=== PATIENT | female | born 1945 | race Caucasian/White ===

== ENCOUNTER 2017-01-21 16:21 | Inpatient (IN) | payer OTHER ==
--- NOTE | 2017-01-21 16:29 | PDOC ---
History of Present Illness - General Chief Complaint: Injury Stated Complaint: LEG PAIN Time Seen by Provider: 01/21/17 16:28 History Source: Patient Exam Limitations: No Limitations - History of Present Illness Initial Comments: 01/21/17 17:32 Patient is a 72-year-old female past medical history of hypertension, type 2 diabetes, HLD, gastric cancer in remission, presents to the emergency department today complaining of left leg pain. Patient states that she slipped on a rug at home and fell on her left side. She is unable to ambulate since falling. She states that the pain is a 10 out of 10. Admits to weakness in the left leg. Denies numbness, tingling, recent illness, cough, shortness of breath , chest pain, frequency, urgency, hematuria, nausea, vomiting and diarrhea. Past History - Travel Traveled outside of the country in the last 30 days: No Close contact w/someone who was outside of country & ill: No - Past Medical History Allergies/Adverse Reactions: Allergies Allergy/AdvReac Type Severity Reaction Status Date / Time aspirin Allergy Verified 01/21/17 16:30 Penicillins Allergy Verified 01/21/17 16:30 Home Medications: Ambulatory Orders Cholecalciferol (Vitamin D3) [Vitamin D3] 1,000 unit PO BID 10/13/14 Cyanocobalamin [Vitamin B12 -] 500 mcg PO DAILY 10/13/14 Glyburide/Metformin HCl [Glucovance 5-500 mg Tablet] 1 each PO BID 10/13/14 Losartan Potassium 100 mg PO DAILY 10/13/14 Simvastatin [Zocor -] 20 mg PO HS 10/13/14 Sitagliptin Phosphate [Januvia] 100 mg PO DAILY 10/13/14 Aspirin [ASA -] 325 mg PO DAILY tablet 10/17/14 Meloxicam 0 mg PO DAILY 01/21/17 Metoprolol Tartrate [Lopressor -] 25 mg PO DAILY 01/21/17 Cancer: Yes (gastric) Diabetes: Yes HTN: Yes - Suicide/Smoking/Psychosocial Hx Smoking History: Former smoker Have you smoked in the past 12 months: No If you are a former smoker, when did you quit?: 30YRS AGO Hx Alcohol Use: No Drug/Substance Use Hx: No Substance Use Type: None Review of Systems - Review of Systems Able to Perform ROS?: Yes Comments:: 01/21/17 17:32 CONSTITUTIONAL: Absent: fever, chills, diaphoresis, generalized weakness, malaise, loss of appetite HEENT: Absent: rhinorrhea, nasal congestion, throat pain, throat swelling, difficulty swallowing, mouth swelling, ear pain, eye pain, visual Changes CARDIOVASCULAR: Absent: chest pain, loss of consciousness, palpitations, irregular heart rate, peripheral edema RESPIRATORY: Absent: cough, shortness of breath, dyspnea with exertion, orthopnea, wheezing, stridor, hemoptysis GASTROINTESTINAL: Absent: abdominal pain, abdominal distension, nausea, vomiting, diarrhea, constipation, melena, hematochezia GENITOURINARY: Absent: dysuria, frequency, urgency, hesitancy, hematuria, flank pain, genital pain MUSCULOSKELETAL: Present: L leg pain, weakness. Absent: myalgia, arthralgia, joint swelling SKIN: Absent: rash, itching, pallor, bruising HEMATOLOGIC/IMMUNOLOGIC: Absent: easy bleeding, easy bruising, lymphadenopathy, frequent infections ENDOCRINE: Absent: unexplained weight gain, unexplained weight loss, heat intolerance, cold intolerance NEUROLOGIC: Absent: headache, focal weakness or paresthesias, dizziness, unsteady gait, seizure, mental status changes, bladder or bowel incontinence PSYCHIATRIC: Absent: anxiety, depression, suicidal or homicidal ideation, hallucinations. Is the patient limited Mauritanian proficient: No *Physical Exam - Physical Exam Comments: 01/21/17 17:33 GENERAL: Well developed, well nourished. Awake and alert. Mild distress d/t pain. HEENT: Normocephalic, atraumatic. PERRLA, EOMI. No conjunctival pallor. Sclera are non- icteric. Moist mucous membranes. Oropharynx is clear. NECK: Supple. Full ROM. No JVD. Carotid pulses 2+ and symmetric, without bruits. No thyromegaly. No lymphadenopathy. CARDIOVASCULAR: Regular rate and rhythm. No murmurs, rubs, or gallops. Distal pulses are 2+ and symmetric. PULMONARY: No evidence of respiratory distress. Lungs clear to auscultation bilaterally. No wheezing, rales or rhonchi. ABDOMINAL: Soft. Non-tender. Non-distended. No rebound or guarding. No organomegaly. Normoactive bowel sounds. MUSCULOSKELETAL Leg is splinted at this time. Unable to range the leg without pain. Pelvis is intact without crepitus. Left leg as however externally rotated and shortened area. Deep PE pulses are intact 2+ bilaterally, gross sensation intact, able to wiggle toes. Cap refill less than 2 seconds. Normal range of motion at all joints. No bony deformities or tenderness. No CVA tenderness. EXTREMITIES: No cyanosis. No clubbing. No edema. No calf tenderness. SKIN: Warm and dry. Normal capillary refill. No rashes. No jaundice. NEUROLOGICAL: Alert, awake, appropriate. Cranial nerves 2-12 intact. No deficits to light touch and temperature in face, upper extremities and lower extremities. No motor deficits in the in face, upper extremities and lower extremities. Normoreflexic in the upper and lower extremities. Normal speech. Toes are down- going bilaterally. Gait is normal without ataxia. PSYCHIATRIC: Cooperative. Good eye contact. Appropriate mood and affect. ED Treatment Course - LABORATORY CBC & Chemistry Diagram: 01/21/17 17:05 01/21/17 17:05 Medical Decision Making - Medical Decision Making 01/21/17 17:34 Patient is a 72-year-old female past medical history of hypertension, type 2 diabetes, HLD, gastric cancer in remission, who presents to the emergency department today with suspected left hip fracture. The left leg is visibly shortened and externally rotated. We'll workup for hip fracture 1.CBC, CMP, PT/INR, type and screen, 2.left hip x-ray 3.2 mg IV morphine 4. Reevaluate 01/21/17 18:34 Pt. feeling better after morphine Left hip is grossly fractured. Patient has a displaced intertrochanteric fx. call was placed to who accepts the patient for admission under . Call made to Dr. Payne to inform him of the patient's status. Will admit to [facility] at this time. *DC/Admit/Observation/Transfer Diagnosis at time of Disposition: Intertrochanteric fracture of left femur Qualifiers: Encounter type: initial encounter Fracture type: closed Fracture alignment: displaced Qualified Code(s): S72.142A - Displaced intertrochanteric fracture of left femur, initial encounter for closed fracture; S72.142A - Displaced intertrochanteric fracture of left femur, initial encounter for closed fracture ; S72.142A - Displaced intertrochanteric fracture of left femur, initial encounter for closed fracture - Discharge Dispostion Condition at time of disposition: Stable Admit: Yes
[2017-01-21 16:30] VITALS: BMI 21.9
[2017-01-21] MEDS ORDERED: morphine CARPU-JECT 2 MG/1 ML DISP.SYRIN IVPUSH ONE (16:43)
[2017-01-21] MEDS ORDERED: morphine CARPU-JECT 2 MG/1 ML DISP.SYRIN ONE (16:53)
[2017-01-21 17:13] LABS: BASOPHIL 0.6 % (0-2.0); EOSINOPHIL 0.6 % (0-4.5); MCH 27.6 pg (25.7-33.7); MCHC 32.8 g/dl (32.0-36.0); MEAN CELL VOLUME 84.3 fl (80-96); MEAN PLT VOLUME 11.5 fl (7.5-11.1); NEUTROPHILS 79.4 % (42.8-82.8); PLATELET COUNT 207 K/MM3 (134-434)
[2017-01-21 17:26] LABS: INR 1.01 (0.82-1.09); PROTHROMBIN TIME (PATIENT) 11.1 SEC (9.98-11.88)
[2017-01-21 18:22] LABS: ALK PHOS 112 U/L (45-117); ANION GAP 12 (8-16); BILIRUBIN,TOTAL 0.3 mg/dL (0.2-1.0); CALCIUM 9.4 mg/dL (8.5-10.1); CO2 25 mmol/L (21-32); CREATININE 0.8 mg/dL (0.55-1.02); GLUCOSE,RANDOM 175 mg/dL (74-106); SGOT/AST 18 U/L (15-37); SGPT/ALT 21 U/L (12-78); TOT PROT 7.2 g/dl (6.4-8.2)
[2017-01-21] MEDS ORDERED: D5-1/2NS+20 MEQ KCL - 1,000 ML IV SCH (21:00)
[2017-01-21] MEDS: HEPARIN NA (PORCINE) 5,000 UNITS/ML 1ML VIAL SQ SCH (21:30)
[2017-01-21] MEDS: morphine CARPU-JECT 4 MG/1 ML DISP.SYRIN IVPUSH PRN (21:30)
[2017-01-21] MEDS ORDERED: ATORVASTATIN CA 10 MG TABLET (FP) PO SCH (22:00)
[2017-01-21 23:55] LABS: URINE APPEARANCE SLCLOUDY; URINE BILIRUBIN NEGATIVE (NEGATIVE); URINE BLOOD NEGATIVE (NEGATIVE); URINE COLOR STRAW; URINE GLUCOSE (UA) 3+ (NEGATIVE); URINE KETONE 1+ (NEGATIVE); URINE NITRITE NEGATIVE (NEGATIVE); URINE PROTEIN NEGATIVE (NEGATIVE); URINE UROBILINOGEN NEGATIVE mg/dL (0.2-1.0)
[2017-01-22 00:10] LABS: URINE LEUK ESTERASE 3+ (NEGATIVE)
[2017-01-22 00:13] LABS: URINE MUCUS RARE; URINE RBC 3 /hpf (0-3); URINE WBC 44 /hpf (3-5)
[2017-01-22] MEDS: morphine CARPU-JECT 4 MG/1 ML DISP.SYRIN IVPUSH PRN (05:58)
[2017-01-22 08:14] LABS: BASOPHIL 0.5 % (0-2.0); EOSINOPHIL 0.5 % (0-4.5); MCH 27.4 pg (25.7-33.7); MCHC 32.8 g/dl (32.0-36.0); MEAN CELL VOLUME 83.4 fl (80-96); NEUTROPHILS 78.9 % (42.8-82.8); PLATELET COUNT 186 K/MM3 (134-434); RDW 15.4 % (11.6-15.6); WHITE BLOOD COUNT 6.1 K/mm3 (4.0-10.0)
[2017-01-22 08:45] LABS: ALBUMIN 3.3 g/dl (3.4-5.0); ANION GAP 8 (8-16); CALCIUM 8.7 mg/dL (8.5-10.1); CO2 26 mmol/L (21-32); CREATININE 0.6 mg/dL (0.55-1.02); GLUCOSE,RANDOM 169 mg/dL (74-106); SGOT/AST 14 U/L (15-37); SGPT/ALT 19 U/L (12-78)
[2017-01-22 08:50] LABS: ALK PHOS 99 U/L (45-117); BILIRUBIN,TOTAL 0.5 mg/dL (0.2-1.0); TOT PROT 6.6 g/dl (6.4-8.2); TROPONIN I < 0.02 ng/ml (0.00-0.05)
--- NOTE | 2017-01-22 09:58 | PN ---
Progress Note (short form) - Note Progress Note: Pt seen and examined. All questions answered. Risks and benefits and potential complications discussed. Plan To OR later today for a Left Gamma nail Need medical clearance NPO
[2017-01-22] MEDS ORDERED: LOSARTAN POTASSIUM 50 MG TABLET (FP) PO SCH (10:00)
[2017-01-22] MEDS ORDERED: PANTOPRAZOLE 40 MG TABLET (FP) PO SCH (10:00)
[2017-01-22] MEDS ORDERED: METOPROLOL TARTRATE 25 MG TABLET (FP) PO SCH (10:00)
[2017-01-22] MEDS: HEPARIN NA (PORCINE) 5,000 UNITS/ML 1ML VIAL SQ SCH (10:28)
--- NOTE | 2017-01-22 10:31 | CON.CARD ---
Cardiology Consult (text) - Consultation Consultation Note: cc: s/p fall hpi: 72 f hx htn, hld, dm here s/p fall. Was at [employer] walking and tripped on rug and fell. No loc, no prodrome sxs. No recent falls. No cp, sob, palps, dizzy, loc, pnd, orthopnea, le edema. No hx hrt dz, cva/tia. Found to have hip fx with plans for OR today. pmh: per hpi psh: nc social: ex tob fam: no premature cad, scd ros: per hpi; no nvd, fever, cough, nasal congestion, wt loss, gib, hematuria, dysuria, muscle pain, vision changes meds: Home Medications Medication Instructions Recorded Cholecalciferol (Vitamin D3) 1,000 unit PO BID 10/13/14 [Vitamin D3] Cyanocobalamin [Vitamin B12 -] 500 mcg PO DAILY 10/13/14 Glyburide/Metformin HCl 1 each PO BID 10/13/14 [Glucovance 5-500 mg Tablet] Losartan Potassium 100 mg PO DAILY 10/13/14 Simvastatin [Zocor -] 20 mg PO HS 10/13/14 Sitagliptin Phosphate [Januvia] 100 mg PO DAILY 10/13/14 Aspirin [ASA -] 325 mg PO DAILY tablet 10/17/14 Meloxicam 0 mg PO DAILY 01/21/17 Metoprolol Tartrate [Lopressor -] 25 mg PO DAILY 01/21/17 pe: Vital Signs Period Temp Pulse Resp BP Sys/Askew Pulse Ox Last 24 Hr 97.5 F-98.5 F 73-81 18-20 120-158/72-91 95-100 nad no jvd rrr s1s2 no mrg cta bl nl eff aaox3 no le e/c/c abd nd nt pos bs no jaundice diaphoresis pos dp pt no carotid bruits Laboratory Last Values WBC 6.1 K/mm3 (4.0-10.0) 01/22/17 06:45 RBC 4.00 M/mm3 (3.60-5.2) 01/22/17 06:45 Hgb 11.0 GM/dL (10.7-15.3) 01/22/17 06:45 Hct 33.4 % (32.4-45.2) 01/22/17 06:45 MCV 83.4 fl (80-96) 01/22/17 06:45 MCH 27.4 pg (25.7-33.7) 01/22/17 06:45 MCHC 32.8 g/dl (32.0-36.0) 01/22/17 06:45 RDW 15.4 % (11.6-15.6) 01/22/17 06:45 Plt Count 186 K/MM3 (134-434) 01/22/17 06:45 MPV 11.0 fl (7.5-11.1) 01/22/17 06:45 Neutrophils % 78.9 % (42.8-82.8) 01/22/17 06:45 Lymphocytes % 11.1 % (8-40) 01/22/17 06:45 Monocytes % 9.0 % (3.8-10.2) 01/22/17 06:45 Eosinophils % 0.5 % (0-4.5) 01/22/17 06:45 Basophils % 0.5 % (0-2.0) 01/22/17 06:45 PT with INR 11.10 SEC (9.98-11.88) 01/21/17 17:05 INR 1.01 (0.82-1.09) 01/21/17 17:05 Sodium 138 mmol/L (136-145) 01/22/17 06:45 Potassium 4.3 mmol/L (3.5-5.1) 01/22/17 06:45 Chloride 104 mmol/L (98-107) 01/22/17 06:45 Carbon Dioxide 26 mmol/L (21-32) 01/22/17 06:45 Anion Gap 8 (8-16) 01/22/17 06:45 BUN 17 mg/dL (7-18) D 01/22/17 06:45 Creatinine 0.6 mg/dL (0.55-1.02) D 01/22/17 06:45 Creat Clearance w eGFR > 60 (>60) 01/22/17 06:45 POC Glucometer 185 UNITS (()) 01/21/17 21:39 Random Glucose 169 mg/dL (74-106) H 01/22/17 06:45 Calcium 8.7 mg/dL (8.5-10.1) 01/22/17 06:45 Total Bilirubin 0.5 mg/dL (0.2-1.0) D 01/22/17 06:45 AST 14 U/L (15-37) L D 01/22/17 06:45 ALT 19 U/L (12-78) 01/22/17 06:45 Alkaline Phosphatase 99 U/L (45-117) 01/22/17 06:45 Troponin I < 0.02 ng/ml (0.00-0.05) 01/22/17 06:45 Total Protein 6.6 g/dl (6.4-8.2) 01/22/17 06:45 Albumin 3.3 g/dl (3.4-5.0) L 01/22/17 06:45 Urine Color Straw 01/21/17 23:00 Urine Appearance Slcloudy 01/21/17 23:00 Urine pH 5.0 (5.0-8.0) 01/21/17 23:00 Ur Specific [place] 1.010 (1.005-1.025) 01/21/17 23:00 Urine Protein Negative (NEGATIVE) 01/21/17 23:00 Urine Glucose (UA) 3+ (NEGATIVE) H 01/21/17 23:00 Urine Ketones 1+ (NEGATIVE) H 01/21/17 23:00 Urine Blood Negative (NEGATIVE) 01/21/17 23:00 Urine Nitrite Negative (NEGATIVE) 01/21/17 23:00 Urine Bilirubin Negative (NEGATIVE) 01/21/17 23:00 Urine Urobilinogen Negative mg/dL (0.2-1.0) 01/21/17 23:00 Urine RBC 3 /hpf (0-3) 01/21/17 23:00 Urine WBC 44 /hpf (3-5) 01/21/17 23:00 Ur Epithelial Cells Rare /hpf (FEW) 01/21/17 23:00 Urine Mucus Rare 01/21/17 23:00 Blood Type O POSITIVE 01/21/17 17:05 Antibody Screen Negative 01/21/17 17:05 mibi 08/2014: no ischemia, nl lvef ecg 01/22/17: sr, nl intervals, no ischemic changes, lad cxr: clear lungs a/p: 72 f hx htn, hld, dm here s/p fall. fall: -mechanical fall, no signs cardiac etiology htn: -cont home meds hld: -cont statin preop: -pt has no unstable cardiac issues at present -recent nuclear stress test unremarkable -ecg benign here -no cardiac contraindications to hip surgery, pt may proceed at intermediate risk of periop cardiac events.
--- NOTE | 2017-01-22 11:24 | HP ---
Admitting History and Physical - Primary Care Physician PCP: Jarred Garland - Admission Chief Complaint: S/P FALL LEFT HIP FRACTURE History of Present Illness: Patient is a 72-year-old female past medical history of hypertension, type 2 diabetes, HLD, gastric cancer in remission, presents to the emergency department today complaining of left leg pain. Patient states that she slipped on a rug at home and fell on her left side. She is unable to ambulate since falling. She states that the pain is a 10 out of 10. Admits to weakness in the left leg. Denies numbness, tingling, recent illness, cough, shortness of breath , chest pain, frequency, urgency, hematuria, nausea, vomiting and diarrhea. History Source: Medical Record Limitations to Obtaining History: Poor Historian - Past Medical History Cardiovascular: Yes: HTN ...: No Heme/Onc: Yes: Cancer Endocrine: Yes: Diabetes Insipidus - Smoking History Smoking history: Former smoker Have you smoked in the past 12 months: No If you are a former smoker, when did you quit?: 30YRS AGO - Alcohol/Substance Use Hx Alcohol Use: No Home Medications - Allergies Allergies/Adverse Reactions: Allergies Allergy/AdvReac Type Severity Reaction Status Date / Time aspirin Allergy Verified 01/21/17 16:30 Penicillins Allergy Verified 01/21/17 16:30 - Home Medications Home Medications: Ambulatory Orders Cholecalciferol (Vitamin D3) [Vitamin D3] 1,000 unit PO BID 10/13/14 Cyanocobalamin [Vitamin B12 -] 500 mcg PO DAILY 10/13/14 Glyburide/Metformin HCl [Glucovance 5-500 mg Tablet] 1 each PO BID 10/13/14 Losartan Potassium 100 mg PO DAILY 10/13/14 Simvastatin [Zocor -] 20 mg PO HS 10/13/14 Sitagliptin Phosphate [Januvia] 100 mg PO DAILY 10/13/14 Aspirin [ASA -] 325 mg PO DAILY tablet 10/17/14 Meloxicam 0 mg PO DAILY 01/21/17 Metoprolol Tartrate [Lopressor -] 25 mg PO DAILY 01/21/17 Review of Systems - Review of Systems Constitutional: reports: Other Eyes: reports: No Symptoms HENT: reports: No Symptoms Neck: reports: No Symptoms Cardiovascular: reports: No Symptoms Respiratory: reports: No Symptoms Gastrointestinal: reports: No Symptoms Genitourinary: reports: No Symptoms Musculoskeletal: reports: Joint Pain, Joint Swelling Integumentary: reports: No Symptoms Neurological: reports: Pre-Existing Deficit Endocrine: reports: No Symptoms Hematology/Lymphatic: reports: No Symptoms Psychiatric: reports: Anxiety, Other Physical Examination Vital Signs: Vital Signs Temperature 98.5 F 01/22/17 06:00 Pulse Rate 81 01/22/17 06:00 Respiratory Rate 20 01/22/17 06:00 Blood Pressure 158/91 01/22/17 06:00 O2 Sat by Pulse Oximetry (%) 97 01/22/17 04:43 Constitutional: Yes: Mild Distress Eyes: Yes: WNL HENT: Yes: WNL Neck: Yes: WNL Cardiovascular: Yes: WNL Respiratory: Yes: WNL Gastrointestinal: Yes: WNL Renal/: Yes: WNL Musculoskeletal: Yes: Joint Stiffness, Joint Swelling, Muscle Pain, Muscle Weakness Extremities: Yes: Other Edema: No Peripheral Pulses WNL: Yes Integumentary: Yes: WNL Wound/Incision: Yes: Clean/Dry Neurological: Yes: Pre-Existing Deficit ...Motor Strength: LLE Psychiatric: Yes: Other Labs: CBC, BMP 01/22/17 06:45 01/22/17 06:45 Imaging - Results X-ray: Report Reviewed Problem List - Problems (1) Intertrochanteric fracture of left femur Code(s): S72.142A - DISPLACED INTERTROCHANTERIC FRACTURE OF LEFT FEMUR, INIT Qualifiers: Encounter type: initial encounter Fracture type: closed Fracture alignment: displaced Qualified Code(s): S72.142A - Displaced intertrochanteric fracture of left femur, initial encounter for closed fracture ; S72.142A - Displaced intertrochanteric fracture of left femur, initial encounter for closed fracture; S72.142A - Displaced intertrochanteric fracture of left femur, initial encounter for closed fracture (2) DMII (diabetes mellitus, type 2) Code(s): E11.9 - TYPE 2 DIABETES MELLITUS WITHOUT COMPLICATIONS Qualifiers: Diabetes mellitus complication status: with circulatory complication Diabetes mellitus penitentiary insulin use: without penitentiary use (3) HTN (hypertension) Code(s): I10 - ESSENTIAL (PRIMARY) HYPERTENSION Qualifiers: Hypertension type: essential hypertension Qualified Code(s): I10 - Essential (primary) hypertension; I10 - Essential (primary) hypertension; I10 - Essential (primary) hypertension Assessment/Plan MEDICALLY CLEARED BY CARDIOLOGY FOR LEFT HIP REPAIR DVT PROPHYLAXIS 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
--- NOTE | 2017-01-22 11:53 | EKG ---
Test Reason : Blood Pressure : / mmHG Vent. Rate : 076 BPM Atrial Rate : 076 BPM P-R Int : 146 ms QRS Dur : 076 ms QT Int : 374 ms P-R-T Axes : 053 -41 021 degrees QTc Int : 420 ms NORMAL SINUS RHYTHM LEFT AXIS DEVIATION ABNORMAL ECG WHEN COMPARED WITH ECG OF 21-JAN-2017 16:34, PREMATURE ATRIAL COMPLEXES ARE NO LONGER PRESENT T WAVE INVERSION NO LONGER EVIDENT IN ANTERIOR LEADS Confirmed by MANNY VILLALTA, PONCE ([id number]) on 01/22/2017 11:52:49 AM Referred By: Cathleen BOUCHER Confirmed By:PONCE BRYANT MD
[2017-01-22] MEDS ORDERED: ONDANSETRON 4 MG/2 ML VIAL IVPUSH PRN ×2 (12:49→16:18)
[2017-01-22] MEDS ORDERED: PROPOFOL 20 ML ONE (12:54)
[2017-01-22] MEDS ORDERED: LIDOCAINE HCL/PF 2% SDV 5ML VIAL ONE (12:54)
[2017-01-22] MEDS ORDERED: LACTATED RINGERS SOLUTION 1,000 ML IV SCH (13:00)
--- NOTE | 2017-01-22 13:04 | EKG ---
Test Reason : Blood Pressure : / mmHG Vent. Rate : 077 BPM Atrial Rate : 077 BPM P-R Int : 146 ms QRS Dur : 070 ms QT Int : 388 ms P-R-T Axes : 078 -39 045 degrees QTc Int : 439 ms POOR DATA QUALITY, INTERPRETATION MAY BE ADVERSELY AFFECTED SINUS RHYTHM WITH PREMATURE ATRIAL COMPLEXES LEFT AXIS DEVIATION NONSPECIFIC T WAVE ABNORMALITY ABNORMAL ECG WHEN COMPARED WITH ECG OF 14-OCT-2014 06:43, PREMATURE ATRIAL COMPLEXES ARE NOW PRESENT Confirmed by MANNY VILLALTA, PONCE ([id number]) on 01/22/2017 1:04:19 PM Referred By: Confirmed By:PONCE BRYANT MD
[2017-01-22] MEDS ORDERED: ceFAZolin SODIUM 1 GM VIAL IVPB ONE (13:05)
[2017-01-22] MEDS ORDERED: ceFAZolin SODIUM 1 GM VIAL ONE ×2 (13:07→19:46)
--- NOTE | 2017-01-22 15:42 | OP ---
Operative Note - Note: Operative Date: 01/22/17 ([facility]) Pre-Operative Diagnosis: left IT fx Operation: left IM gamma nail Post-Operative Diagnosis: Same as Pre-op Surgeon: Alejandro Davis Cable Lacer: Howard Varela Anesthesiologist/WIRELESS SALES ASSOCIATE: Viola Osborne Anesthesia: General Estimated Blood Loss (mls): 50 Operative Report Dictated: Yes
[2017-01-22] MEDS ORDERED: INSULIN SLIDING SCALE (NOVOLOG) 1 VIAL SQ SCH (16:30)
[2017-01-22] MEDS: D5-1/2NS+20 MEQ KCL - 1,000 ML IV SCH (16:30)
[2017-01-22] MEDS: INSULIN SLIDING SCALE (NOVOLOG) 1 VIAL SQ SCH ×2 (16:44→21:18)
[2017-01-22] MEDS: morphine CARPU-JECT 2 MG/1 ML DISP.SYRIN IVPUSH PRN (17:31)
[2017-01-22] MEDS ORDERED: DEXTROSE 5%-WATER - 50 ML IVPB ONE (19:47)
[2017-01-22] MEDS: CEFAZOLIN 1 GM in DEXTROSE 5%-WATER - 50 ML IVPB SCH (20:00)
[2017-01-22] MEDS ORDERED: CEFAZOLIN 1 GM/D5W 50 ML IVPB SCH (21:00)
[2017-01-22] MEDS: ATORVASTATIN CA 10 MG TABLET (FP) PO SCH (21:17)
--- NOTE | 2017-01-22 22:57 | OP ---
DATE OF OPERATION: PREOPERATIVE DIAGNOSIS: Left femur intratrochanteric hip fracture. POSTOPERATIVE DIAGNOSIS: Left femur intratrochanteric hip fracture. PROCEDURE: Left femur intramedullary nail/gamma nail. SURGEON: Alejandro Davis M.D. DENTAL RECEPTIONIST: Myron Kaur ANESTHESIA: Spinal anesthesia with sedation. BLOOD LOSS: 50 mL. BLOOD GIVEN: None. FLUID REPLACEMENT: 500 mL. DRAINS: None. COMPLICATIONS: None. INDICATION: This patient is a 72-year-old female with preoperative diagnosis of a left femur intratrochanteric hip fracture. After understanding the potential risks, complications, alternatives, benefits to surgery versus nonsurgical treatment, the patient elected to undergo this procedure. DETAILS: Lag screw 100 mm and distal screw 37.5 mm. PROCEDURE: Patient was brought to the operating room. Peripheral IV placed, IV sedation given. One gram of IV Ancef was given. General anesthesia was induced. The patient had ample Webril placed around the peroneal post in both ankles. The patient was placed onto the fracture table with a slight longitudinal traction and internal rotation. X-rays were taken documenting excellent reduction of the fracture in the AP and lateral planes. Next, an incision was made over the proximal aspect of the greater trochanter. Subcutaneous hemostasis was achieved with a Bovie cautery, dissection done through the lateral fascia to the top of the greater trochanter. A Ramsey elevator was used to take off the soft tissue from the starting point. Under direct visualization a partially threaded guide-wire was placed through the standard starting position, into the proximal femur, passed the fracture fragment into the medullary canal. It was documented to be in excellent position in AP, lateral and multiple oblique planes. Next, we used the proximal 17 mm cannulated reamer and put in a standard titanium Garth Gamma 3 125 degree, 180 mm trochanteric nail. This was put in cannulated fashion to appropriate depth and using the external guide in a standard fashion, first using external jig, using a threaded guide-wire, replaced the lag screw, guide pin to the lateral aspect of the femur. The prosthesis and up to the femoral neck and head, looked to be in excellent position in a center central position, perhaps slightly posterior and slightly inferior in both AP and lateral planes. We measured it at an 80 mm screw. The cannulated drill was used to drill it to this leg and then we put in an 80 mm titanium lag screw. We achieved excellent compression and overall the position of the hardware in the fracture fragments looked excellent. We locked it in place with a proximal set screw, we altered the external jig to the static position and using the standard technique put in a distal interlocking screw under direct visualization of 30 mm in length. This locked the nail distally. We removed the external jig. We repeated x-rays in AP, lateral and multiple oblique planes and overall I was quite happy with the position of the fracture reduction, the length of the screw, the position of the hardware. Final x-rays were taken. The area was copiously irrigated and washed out. The deep fascial layer was closed with 0 Vicryl sutures. The deep dermal layer was closed with 2-0 Vicryl. Final skin approximation was done with regan. The area was then washed and dried, covered with Xeroform gauze, 4 x 4 gauze, ABD and tape. Patient was taken down off the fracture table in stable condition. There were no complications during the case. Total operative time was about 30 minutes. The patient tolerated the procedure well and was brought to stable condition. Alonso [id number]
[2017-01-23] MEDS: morphine CARPU-JECT 2 MG/1 ML DISP.SYRIN IVPUSH PRN ×2 (01:24→09:07)
[2017-01-23] MEDS: LACTATED RINGERS SOLUTION 1,000 ML IV SCH ×2 (02:11→15:33)
[2017-01-23] MEDS ORDERED: DEXTROSE 5%-WATER - 50 ML IVPB ONE (05:34)
[2017-01-23] MEDS ORDERED: ceFAZolin SODIUM 1 GM VIAL ONE (05:34)
[2017-01-23] MEDS: CEFAZOLIN 1 GM in DEXTROSE 5%-WATER - 50 ML IVPB SCH (05:38)
[2017-01-23] MEDS: D5-1/2NS+20 MEQ KCL - 1,000 ML IV SCH ×2 (06:10→15:32)
[2017-01-23] MEDS: INSULIN SLIDING SCALE (NOVOLOG) 1 VIAL SQ SCH ×4 (06:33→21:37)
[2017-01-23] MEDS ORDERED: INSULIN (NOVOLOG) ASPART 100 UNITS/ML 10ML VIAL ONE ×3 (06:35→15:38)
[2017-01-23 08:15] LABS: MCH 27.3 pg (25.7-33.7); MCHC 32.6 g/dl (32.0-36.0); MEAN CELL VOLUME 83.7 fl (80-96); MEAN PLT VOLUME 11.1 fl (7.5-11.1); PLATELET COUNT 206 K/MM3 (134-434); RDW 15.1 % (11.6-15.6); WHITE BLOOD COUNT 10.1 K/mm3 (4.0-10.0)
[2017-01-23 08:40] LABS: ANION GAP 14 (8-16); CALCIUM 8.7 mg/dL (8.5-10.1); CO2 22 mmol/L (21-32); GLUCOSE,RANDOM 207 mg/dL (74-106); SGOT/AST 14 U/L (15-37); SGPT/ALT 15 U/L (12-78)
[2017-01-23 08:43] LABS: ALK PHOS 90 U/L (45-117); BILIRUBIN,TOTAL 0.5 mg/dL (0.2-1.0); CREATININE 0.9 mg/dL (0.55-1.02); TOT PROT 6.2 g/dl (6.4-8.2)
[2017-01-23] MEDS: LOSARTAN POTASSIUM 50 MG TABLET (FP) PO SCH (09:05)
[2017-01-23] MEDS: PANTOPRAZOLE 40 MG TABLET (FP) PO SCH (09:07)
[2017-01-23] MEDS: ENOXAPARIN NA (PORCINE) 40 MG/0.4 ML DISP.SYRIN SQ SCH (09:07)
[2017-01-23] MEDS ORDERED: METOPROLOL TARTRATE 25 MG TABLET (FP) PO SCH (10:00)
[2017-01-23] MEDS ORDERED: ENOXAPARIN NA (PORCINE) 40 MG/0.4 ML DISP.SYRIN SQ SCH (10:00)
--- NOTE | 2017-01-23 11:04 | PN ---
Progress Note (short form) - Note Progress Note: Ortho Pt seen and examined s/p left IM gamma nail pod #1 Selected Entries 01/23/17 05:40 Temperature 98.4 F Pulse Rate 102 H Respiratory 20 Rate Blood Pressure 134/68 Laboratory Tests 01/23/17 06:45 WBC 10.1 H D Hgb 9.9 L Hct 30.4 L Plt Count 206 dressing c/d/i, calf soft, nt nvi a/p PT wbat dvt ppx pain control d/c planning
--- NOTE | 2017-01-23 11:30 | PN ---
Progress Note, Physician Chief Complaint: AWAKE ALERT OOB TO CHAIR EVENTS REVIEWED - Current Medication List Current Medications: Active Medications Atorvastatin Calcium (Lipitor -) 10 mg PO HS [facility] Last Admin: 01/22/17 21:17 Dose: 10 mg Enoxaparin Sodium (Lovenox -) 40 mg SQ DAILY [facility] Last Admin: 01/23/17 09:07 Dose: 40 mg Lactated Ringer's (Lactated Ringers Solution) 1,000 mls @ 125 mls/hr IV ASDIR [facility] Last Admin: 01/23/17 02:11 Dose: Not Given Potassium Chloride/Dextrose/Sod Cl (D5-1/2ns+20 Meq Kcl -) 1,000 mls @ 75 mls/ hr IV ASDIR [facility] Last Admin: 01/23/17 06:10 Dose: 75 mls/hr Insulin Aspart (Novolog Vial Sliding Scale -) 1 vial SQ ACHS [facility] PRN Reason: Protocol Last Admin: 01/23/17 10:43 Dose: 4 units Losartan Potassium (Cozaar -) 100 mg PO DAILY [facility] Last Admin: 01/23/17 09:05 Dose: 100 mg Metoprolol Tartrate (Lopressor -) 25 mg PO DAILY [facility] Last Admin: 01/23/17 09:05 Dose: 25 mg Morphine Sulfate (Morphine Injection -) 1 mg IVPUSH Q4H PRN PRN Reason: PAIN Last Admin: 01/23/17 09:07 Dose: 1 mg Oxycodone HCl (Roxicodone -) 5 mg PO Q4H PRN PRN Reason: PAIN LEVEL 6-10 Pantoprazole Sodium (Protonix -) 40 mg PO DAILY [facility] Last Admin: 01/23/17 09:07 Dose: Not Given - Objective Vital Signs: Vital Signs Temperature 98.4 F 01/23/17 05:40 Pulse Rate 102 H 01/23/17 05:40 Respiratory Rate 20 01/23/17 05:40 Blood Pressure 134/68 01/23/17 05:40 O2 Sat by Pulse Oximetry (%) 98 01/22/17 20:18 Constitutional: Yes: Mild Distress Eyes: Yes: WNL HENT: Yes: WNL Neck: Yes: WNL Cardiovascular: Yes: WNL Respiratory: Yes: WNL Gastrointestinal: Yes: WNL Genitourinary: Yes: WNL Musculoskeletal: Yes: Muscle Weakness Extremities: Yes: Other Edema: Yes Edema: LLE: 1+, RLE: 1+ Peripheral Pulses WNL: Yes Integumentary: Yes: Other Wound/Incision: Yes: Dressing Dry and Intact Neurological: Yes: Pre-Existing Deficit, Weakness ...Motor Strength: LLE, RLE Psychiatric: Yes: Other Labs: CBC, BMP 01/23/17 06:45 01/23/17 06:45 INR, PTT INR 1.01 (0.82-1.09) 01/21/17 17:05 Problem List - Problems (1) Intertrochanteric fracture of left femur Code(s): S72.142A - DISPLACED INTERTROCHANTERIC FRACTURE OF LEFT FEMUR, INIT Qualifiers: Encounter type: initial encounter Fracture type: closed Fracture alignment: displaced Qualified Code(s): S72.142A - Displaced intertrochanteric fracture of left femur, initial encounter for closed fracture ; S72.142A - Displaced intertrochanteric fracture of left femur, initial encounter for closed fracture; S72.142A - Displaced intertrochanteric fracture of left femur, initial encounter for closed fracture (2) DMII (diabetes mellitus, type 2) Code(s): E11.9 - TYPE 2 DIABETES MELLITUS WITHOUT COMPLICATIONS Qualifiers: Diabetes mellitus complication status: with circulatory complication Diabetes mellitus half-way insulin use: without half-way use (3) HTN (hypertension) Code(s): I10 - ESSENTIAL (PRIMARY) HYPERTENSION Qualifiers: Hypertension type: essential hypertension Qualified Code(s): I10 - Essential (primary) hypertension; I10 - Essential (primary) hypertension; I10 - Essential (primary) hypertension Assessment/Plan POD #1 LEFT HIP REPAIR OOB TO CHAIR DVT PROPHYLAXIS LABS REVIEWED [facility]
[2017-01-23] MEDS: DOCUSATE SODIUM 100 MG CAPSULE (FP) PO SCH (13:48)
[2017-01-23] MEDS: FERROUS SO4 325 MG TABLET (FP) PO SCH (13:48)
[2017-01-23] MEDS: oxyCODONE HCL 5 MG TABLET PO PRN (13:51)
--- NOTE | 2017-01-23 16:43 | PN ---
Progress Note (short form) - Note Progress Note: cc: s/p fall S: S/p surgery yesterday. No complications. No cp, sob, palps, dizzy. Pain earlier today, now controlled. Ate mosotho food today that family brought. Current Medications Atorvastatin Calcium (Lipitor -) 10 mg PO HS [facility] Last Admin: 01/22/17 21:17 Dose: 10 mg Docusate Sodium (Colace -) 100 mg PO DAILY [facility] Last Admin: 01/23/17 13:48 Dose: 100 mg Enoxaparin Sodium (Lovenox -) 40 mg SQ DAILY [facility] Last Admin: 01/23/17 09:07 Dose: 40 mg Ferrous Sulfate (Feosol -) 325 mg PO DAILY [facility] Last Admin: 01/23/17 13:48 Dose: 325 mg Lactated Ringer's (Lactated Ringers Solution) 1,000 mls @ 125 mls/hr IV ASDIR [facility] Last Admin: 01/23/17 15:33 Dose: Not Given Potassium Chloride/Dextrose/Sod Cl (D5-1/2ns+20 Meq Kcl -) 1,000 mls @ 75 mls/ hr IV ASDIR [facility] Last Admin: 01/23/17 15:32 Dose: Not Given Insulin Aspart (Novolog Vial Sliding Scale -) 1 vial SQ ACHS [facility] PRN Reason: Protocol Last Admin: 01/23/17 15:43 Dose: 4 units Losartan Potassium (Cozaar -) 100 mg PO DAILY [facility] Last Admin: 01/23/17 09:05 Dose: 100 mg Metoprolol Tartrate (Lopressor -) 25 mg PO DAILY [facility] Last Admin: 01/23/17 09:05 Dose: 25 mg Morphine Sulfate (Morphine Injection -) 1 mg IVPUSH Q4H PRN PRN Reason: PAIN Last Admin: 01/23/17 09:07 Dose: 1 mg Oxycodone HCl (Roxicodone -) 5 mg PO Q4H PRN PRN Reason: PAIN LEVEL 6-10 Last Admin: 01/23/17 13:51 Dose: 5 mg Pantoprazole Sodium (Protonix -) 40 mg PO DAILY [facility] Last Admin: 01/23/17 09:07 Dose: Not Given Vital Signs - 24 hr 01/22/17 01/22/17 01/22/17 17:00 19:25 20:18 Temperature 97.9 F 97.9 F Pulse Rate 78 79 Respiratory 18 20 20 Rate Blood Pressure 135/75 139/70 O2 Sat by Pulse 98 98 Oximetry (%) 01/22/17 01/23/17 01/23/17 23:00 02:00 05:40 Temperature 99.8 F H 98.4 F Pulse Rate 75 96 H 102 H Respiratory 18 20 20 Rate Blood Pressure 132/82 131/63 134/68 O2 Sat by Pulse Oximetry (%) 01/23/17 01/23/17 08:00 14:00 Temperature 98.2 F 98.0 F Pulse Rate 105 H 82 Respiratory 20 18 Rate Blood Pressure 116/68 122/60 O2 Sat by Pulse 98 Oximetry (%) Intake & Output 01/21/17 01/22/17 01/23/17 01/24/17 07:59 07:59 07:59 07:59 Intake Total 750 2150 300 Output Total 650 500 Balance 750 1500 -200 Weight 120 lb nad no jvd rrr s1s2 no mrg cta bl nl eff aaox3 no le e/c/c abd nd nt pos bs no jaundice diaphoresis pos dp pt no carotid bruits CBC, BMP 01/23/17 06:45 01/23/17 06:45 Laboratory Tests 01/22/17 01/23/17 06:45 06:45 Hgb 11.0 Total Bilirubin 0.5 AST 14 L ALT 15 D Alkaline Phosphatase 90 Albumin 3.0 L echo: Nl lv/rv. 1+ mr. rvsp not measured. mibi 08/2014: no ischemia, nl lvef ecg 01/22/17: sr, nl intervals, no ischemic changes, lad cxr: clear lungs a/p: 72 f hx htn, hld, dm here s/p fall. fall/hip fx: -mechanical fall, no signs cardiac etiology - s/p Lt IM gamma nail 01/22 htn: -Patient states she was on atenolol at home. Will switch from daily lopressor to atenolol for 24 hr coverage. hld: -cont statin preop: -pt has no unstable cardiac issues at present -2014 nuclear stress test unremarkable. echo here without sig ab -ecg benign here - risk of periop cardiac events estimated as intermediate. s/p Lt IM gamma nail 01/22. Reasonable bp/hr control. - 01/23: Patient taking in PO. BP normal and HR has come down --> would stop IVF.
[2017-01-23] MEDS: ATORVASTATIN CA 10 MG TABLET (FP) PO SCH (21:38)
[2017-01-24] MEDS: oxyCODONE HCL 5 MG TABLET PO PRN ×2 (01:43→10:04)
[2017-01-24] MEDS: INSULIN SLIDING SCALE (NOVOLOG) 1 VIAL SQ SCH ×2 (06:43→12:05)
[2017-01-24] MEDS ORDERED: INSULIN (NOVOLOG) ASPART 100 UNITS/ML 10ML VIAL ONE (06:47)
[2017-01-24 07:56] LABS: MCH 27.3 pg (25.7-33.7); MCHC 32.2 g/dl (32.0-36.0); MEAN CELL VOLUME 84.6 fl (80-96); MEAN PLT VOLUME 10.8 fl (7.5-11.1); PLATELET COUNT 183 K/MM3 (134-434); RDW 15.1 % (11.6-15.6); WHITE BLOOD COUNT 8.1 K/mm3 (4.0-10.0)
[2017-01-24 08:33] LABS: ANION GAP 10 (8-16); CALCIUM 8.5 mg/dL (8.5-10.1); CO2 23 mmol/L (21-32); GLUCOSE,RANDOM 193 mg/dL (74-106)
[2017-01-24 08:35] LABS: CREATININE 0.6 mg/dL (0.55-1.02)
[2017-01-24] MEDS ORDERED: ATENOLOL 25 MG TABLET (FP) PO SCH (10:00)
[2017-01-24] MEDS: FERROUS SO4 325 MG TABLET (FP) PO SCH (10:03)
[2017-01-24] MEDS: LOSARTAN POTASSIUM 50 MG TABLET (FP) PO SCH (10:03)
[2017-01-24] MEDS: ENOXAPARIN NA (PORCINE) 40 MG/0.4 ML DISP.SYRIN SQ SCH (10:03)
[2017-01-24] MEDS: PANTOPRAZOLE 40 MG TABLET (FP) PO SCH (10:04)
[2017-01-24] MEDS: DOCUSATE SODIUM 100 MG CAPSULE (FP) PO SCH (10:04)
--- NOTE | 2017-01-24 10:14 | PN ---
Progress Note (short form) - Note Progress Note: Ortho Pt seen and examined s/p left IM gamma nail pod #2 Selected Entries 01/24/17 05:30 Temperature 98.6 F Pulse Rate 90 Respiratory 20 Rate Blood Pressure 122/63 Laboratory Tests 01/24/17 06:45 WBC 8.1 Hgb 9.5 L Hct 29.4 L Plt Count 183 dressing c/d/i, calf soft, nt nvi a/p PT wbat dvt ppx pain control d/c planning
[2017-01-24] MEDS: morphine CARPU-JECT 2 MG/1 ML DISP.SYRIN IVPUSH PRN (10:15)
--- NOTE | 2017-01-24 12:17 | DS ---
Physical Examination Vital Signs: Vital Signs Temperature 98.4 F 01/24/17 09:00 Pulse Rate 93 H 01/24/17 09:00 Respiratory Rate 20 01/24/17 09:00 Blood Pressure 132/67 01/24/17 09:00 O2 Sat by Pulse Oximetry (%) 98 01/23/17 21:00 Constitutional: Yes: Mild Distress Eyes: Yes: WNL HENT: Yes: WNL, Other Cardiovascular: Yes: WNL Respiratory: Yes: WNL Gastrointestinal: Yes: WNL Renal/: Yes: WNL Musculoskeletal: Yes: Muscle Weakness Extremities: Yes: WNL Edema: No Peripheral Pulses WNL: Yes Integumentary: Yes: WNL Wound/Incision: Yes: Clean/Dry Neurological: Yes: Unsteady Gait ...Motor Strength: LLE Psychiatric: Yes: WNL Labs: CBC, BMP 01/24/17 06:45 01/24/17 06:45 Discharge Summary Reason For Visit: INTERTROCHANTERIC FRACTURE OF LEFT FEMUR Current Active Problems DMII (diabetes mellitus, type 2) (Acute) HTN (hypertension) (Acute) Intertrochanteric fracture of left femur (Acute) Procedures: Principal: LEFT FEMUR SURGERY Hospital Course: ADMITTED FOR LEFT FEMUR FRACTURE, SURGICALLY REPAIRED AND NOW GOING TO SNF Condition: Improved - Instructions Diet, Activity, Other Instructions: LOW SODIUM CBC CMP WEEKLY Referrals: Cal Antoine MD [Primary Care Provider] - Disposition: INTERMEDIATE FACILITY - Home Medications Comprehensive Discharge Medication List: Ambulatory Orders Cholecalciferol (Vitamin D3) [Vitamin D3] 1,000 unit PO BID 10/13/14 Cyanocobalamin [Vitamin B12 -] 500 mcg PO DAILY 10/13/14 Glyburide/Metformin HCl [Glucovance 5-500 mg Tablet] 1 each PO BID 10/13/14 Losartan Potassium 100 mg PO DAILY 10/13/14 Simvastatin [Zocor -] 20 mg PO HS 10/13/14 Sitagliptin Phosphate [Januvia] 100 mg PO DAILY 10/13/14 Aspirin [ASA -] 325 mg PO DAILY tablet 10/17/14 Meloxicam 0 mg PO DAILY 01/21/17 Metoprolol Tartrate [Lopressor -] 25 mg PO DAILY 01/21/17
[2017-01-24 14:59] VITALS: BP 113/65; PULSE 80; TEMP 98.1
--- NOTE | 2017-01-28 13:52 | PN ---
Progress Note (short form) - Note Progress Note: Pt seen and examined. In short she is a 72 year old female patient s/p fall, with c/o pain in the left hip. She is unable to ambulate. AVSS PE A&O x3 LLE is grossly NVI LLE is shortened and externally rotated. Good ROM at the left knee, ankle, foot, toes + pain with pressure over the left hip and hemipelvis Xrays Show a displaced left femur intertrochanteric hip fracture. Imp Left femur IT fracture Rec Admission Medical clearance NPO after midnight To OR when cleared for a left Gamma Nail/IM nail ORIF
--- NOTE | 2017-02-04 10:14 | PN ---
Progress Note (short form) - Note Progress Note: Ortho drop in H/H, vitals stable, will f/u cbc
--- NOTE | 2017-02-04 18:06 | PN ---
Progress Note (short form) - Note Progress Note: ADDENDUM DIAGNOSIS: PRECIPITUOS DROP IN HEMATOCRIT S/P GAMMA NAIL HIP SX IT Problem List - Problems (1) Intertrochanteric fracture of left femur Code(s): S72.142A - DISPLACED INTERTROCHANTERIC FRACTURE OF LEFT FEMUR, INIT Qualifiers: Encounter type: initial encounter Fracture type: closed Fracture alignment: displaced Qualified Code(s): S72.142A - Displaced intertrochanteric fracture of left femur, initial encounter for closed fracture ; S72.142A - Displaced intertrochanteric fracture of left femur, initial encounter for closed fracture; S72.142A - Displaced intertrochanteric fracture of left femur, initial encounter for closed fracture (2) DMII (diabetes mellitus, type 2) Code(s): E11.9 - TYPE 2 DIABETES MELLITUS WITHOUT COMPLICATIONS Qualifiers: Diabetes mellitus complication status: with circulatory complication Diabetes mellitus 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
--- NOTE | 2017-02-06 10:14 | CONSULT ---
Consult - text type - Consultation Consultation Note: Pt seen and examined. In short she is a 72 year old female patient s/p fall, with c/o pain in the left hip. She is unable to ambulate. AVSS PE A&O x3 LLE is grossly NVI LLE is shortened and externally rotated. Good ROM at the left knee, ankle, foot, toes + pain with pressure over the left hip and hemipelvis Xrays Show a displaced left femur intertrochanteric hip fracture. Imp Left femur IT fracture Rec Admission Medical clearance NPO after midnight To OR when cleared for a left Gamma Nail/IM nail ORIF
== END 2017-01-24 16:22 | DRG 481 ==
LOC: JER 16:21 → JERBED 18:36 → J6S 20:19
PROVIDERS: ADMIT Family Medicine; ATTEND Family Medicine
PROC: 0QS706Z Reposition Left Upper Femur with Intramedullary Internal Fixation Device, Open Approach (ICD-10-PCS; principal; 2017-01-21)
DX: S72.142A Displaced intertrochanteric fracture of left femur, initial encounter for closed fracture (principal); R71.0 Precipitous drop in hematocrit; Y99.8 Other external cause status; Y92.89 Other specified places as the place of occurrence of the external cause; Y93.89 Activity, other specified; W01.0XXA Fall on same level from slipping, tripping and stumbling without subsequent striking against object, initial encounter; E11.9 Type 2 diabetes mellitus without complications; I10 Essential (primary) hypertension; E78.5 Hyperlipidemia, unspecified; Z85.028 Personal history of other malignant neoplasm of stomach; Z87.891 Personal history of nicotine dependence; Z79.84 Long term (current) use of oral hypoglycemic drugs
CPT/HCPCS: 36415; 71010-TC; 73523-TC; 73700-TC-RT; 76000-TC; 80048; 80053; 81003; 81015; 83735; 84484; 85025; 85027; 85610; 86850; 86900; 86901; 93005; 93010; 93306-TC; 94010; 94760; 97116-GP; 97161-GP; 99284-25; J1644

== ENCOUNTER 2019-06-20 12:10 | Emergency (ER) | payer BC, OTHER ==
[2019-06-20 12:24] VITALS: PULSE 62; BMI 24.1
[2019-06-20] MEDS ORDERED: SODIUM CHLORIDE 1,000 ML IV STA (13:16)
--- NOTE | 2019-06-20 13:30 | PDOC ---
Documentation entered by Francisco Javier Gustafson SCRIBE, acting as scribe for Nelly Lopez DO. Nelly Lopez DO: This documentation has been prepared by the Sj forrest Daniel, SCRIBE, under my direction and personally reviewed by me in its entirety. I confirm that the documentation accurately reflects all work, treatment, procedures, and medical decision making performed by me. Attending Attestation - Resident Resident Name: Jazmyn Nur - ED Attending Attestation I have performed the following: I have examined & evaluated the patient, The case was reviewed & discussed with the resident, I agree w/resident's findings & plan, Exceptions are as noted - HPI HPI: 06/20/19 14:00 The patient is a 74 year old female with a past medical history of diabetes and HTN here today for evaluation of dizziness. The patient reports that she had her ears cleaned recently and has since felt dizzy. Patient denies headache, lightheadedness. Denies fever, chills. Denies chest pain, shortness of breath. Denies nausea, vomiting, diarrhea, abdominal pain. Allergies: aspirin, penicillin PCP: Cal Antoine - Physicial Exam PE: 06/20/19 13:50 Constitutional: Awake, alert, oriented. No acute distress. Head: Normocephalic. Atraumatic Eyes: PERRL. EOMI. Conjunctivae are not pale. ENT: +poor dentition. +dried blood and erythema in the left ear canal. Mucous membranes are moist and intact. Posterior pharynx without exudates or erythema. Uvula midline. Neck: Supple. Full ROM. No lymphadenopathy. Cardiovascular: Regular rate. Regular rhythm. S1, S2 regular. Distal pulses are 2+ and symmetric. Pulmonary/Chest: No evidence of respiratory distress. Clear to auscultation bilaterally No wheezing, rales or rhonchi. Abdominal: Soft and non-distended. There is no tenderness. No rebound, guarding or rigidity. No organomegaly. No palpable masses. Good bowel sounds. Back: No CVA tenderness. Musculoskeletal: No edema. No cyanosis. No clubbing. Full range of motion in all extremities. No calf tenderness. Radial/pedal pulses are intact and 2+ bilaterally Skin: Skin is warm and dry. No petechiae. No purpura. Neurological: Alert and oriented to person, place, and time. Cranial nerves II -XII are grossly intact. Normal speech. Strength is grossly symmetric. No sensory deficits. Psychiatric: Good eye contact. Normal interaction, affect and behavior. - Medical Decision Making 06/20/19 13:30 I, Dr. Nelly Lopez, DO, attest that this document has been prepared under my direction and personally reviewed by me in its entirety. I further attest, that it accurately reflects all work, treatment, procedures and medical decision -making performed by me. 06/20/19 14:10 a/p: 74yo female with L ear wax removal 2 days ago with intermittent dizzy episodes and an episode of hypoglycemia 67 at home -pt is diabetic -pt had her ear wax removed friday by dr. Mcclendon, did not use the ear drops -pt with vertiginous symptoms -no dizziness currently -no falls or head injury - states room will spin -pt with erythema to l external ear canal and dry blood, no active bleeding -will send labs, ekg, nss, reglan -will monitor and reassess -pt nontoxic in appearance, neuro intact 06/20/19 14:21 pt with uti will start oral abx will rx ear drops for otitis externa 06/20/19 15:05 pt feeling much better ate half a sandwich no dizziness states she wants to go home pt stable for dc to home Heart Score/ECG Review - ECG Intrepretation Comment:: 06/20/19 13:29 sinus yi at 55, L axis, t wave inversions III, v2-3, abnl ekg 06/20/19 13:30 ekg unchanged from 2017 ekg
--- NOTE | 2019-06-20 13:41 | PDOC ---
History of Present Illness - General Chief Complaint: Lightheaded Stated Complaint: DIZZINESS Time Seen by Provider: 06/20/19 12:21 - History of Present Illness Initial Comments: 06/20/19 13:41 74 y/o F with PMH of HTN, HLD, DM, gastric cancer (in remission) presents to the ED because of lightheadedness. Pt was cleaning her kitchen when she began to feel lightheaded and sat on a chair. Her symptoms then resolved and pt went to bed. This morning, her symptoms recurred upon awakening; at this time pt checked her blood glucose which was low at 67. She drank some orange juice and a spoon of honey before presenting to the ED. She denies any precipitating symptoms such as PARDO, blurry vision, head trauma, LOC, palpitations, chest pain , SOB, FND. She does admit some dysuria lately. She further denies any F/C/N/V/D Pt recently had wax removal on friday which was causing vertigo and prescribed ear drops which patient refused. denies any ear pain PMH: as above PSH: 2 hip sx s/p fracture, gastric cancer surgery social: denies ROS: Constitutional: no fever,no chills HEENT: no throat pain, no dysphagia Cardiovascular: no chest pain, no palpitations Respiratory: no cough, no shortness of breath Gastrointestinal: no Nausea and vomiting Genitourinary: no urgency,no dysuria Musculoskeletal: no myalgia, no arthralgia Skin: no bruising Neurologic: no weakness Psych: no agitation, no anxiety PE: VSS GEN: NAD Neuro: CN 2-12 intact,, motor strength 5/5 in all muscle groups, sensation intact throughout, 2+ reflexes in U&L extremities, gait normal HEENT: PERRLA, moist membrane, clear conjunctiva, +dried blood and erythema in the left ear canal NECK: no JVD CHEST:vesicular breath sounds b/l no wheezing, no rales appreciated HEART:RRR, no murmur, rubs or gallop ABDOMEN: + BS, soft, NTND Extremities: 2+ pulses, no edema SKIN: no bruises MSK: no arthralgia, no joint tenderness Assessment: based on HPI and PE: vertigo vs syncope vs otitis externa Plan: CBC, cmp, cardiac profile, EKG, UA, urine culture 1L NS, reglan EKG sinus yi at 55, L axis, t wave inversions III, v2-3, abnl ekg 06/20/19 13:30 ekg unchanged from 2017 ekg CBC,CMP WBC 6.6 K/mm3 (4.0-10.0) 06/20/19 13:45 RBC 4.31 M/mm3 (3.60-5.2) 06/20/19 13:45 Hgb 12.0 GM/dL (10.7-15.3) 06/20/19 13:45 Hct 36.6 % (32.4-45.2) D 06/20/19 13:45 MCV 84.8 fl (80-96) 06/20/19 13:45 MCH 27.8 pg (25.7-33.7) 06/20/19 13:45 MCHC 32.8 g/dl (32.0-36.0) 06/20/19 13:45 RDW 15.3 % (11.6-15.6) 06/20/19 13:45 Plt Count 187 K/MM3 (134-434) 06/20/19 13:45 MPV 11.3 fl (7.5-11.1) H 06/20/19 13:45 Absolute Neuts (auto) 5.1 K/mm3 (1.5-8.0) 06/20/19 13:45 Neutrophils % 77.1 % (42.8-82.8) 06/20/19 13:45 Lymphocytes % 15.1 % (8-40) D 06/20/19 13:45 Monocytes % 6.0 % (3.8-10.2) 06/20/19 13:45 Eosinophils % 1.0 % (0-4.5) D 06/20/19 13:45 Basophils % 0.8 % (0-2.0) 06/20/19 13:45 Nucleated RBC % 0 % (0-0) 06/20/19 13:45 Sodium 141 mmol/L (136-145) 06/20/19 13:45 Potassium 4.7 mmol/L (3.5-5.1) 06/20/19 13:45 Chloride 108 mmol/L (98-107) H 06/20/19 13:45 Carbon Dioxide 25 mmol/L (21-32) 06/20/19 13:45 Anion Gap 7 MMOL/L (8-16) L 06/20/19 13:45 BUN 16.4 mg/dL (7-18) 06/20/19 13:45 Creatinine 0.8 mg/dL (0.55-1.3) 06/20/19 13:45 Est GFR (CKD-EPI)AfAm 83.00 06/20/19 13:45 Est GFR (CKD-EPI)NonAf 71.61 06/20/19 13:45 Random Glucose 166 mg/dL (74-106) H 06/20/19 13:45 Calcium 8.7 mg/dL (8.5-10.1) 06/20/19 13:45 Total Bilirubin 0.4 mg/dL (0.2-1) 06/20/19 13:45 AST 19 U/L (15-37) 06/20/19 13:45 ALT 20 U/L (13-61) 06/20/19 13:45 Alkaline Phosphatase 110 U/L (45-117) 06/20/19 13:45 Creatine Kinase 82 U/L (26-192) 06/20/19 13:45 Troponin I < 0.02 ng/ml (0.00-0.05) 06/20/19 13:45 Total Protein 7.1 g/dl (6.4-8.2) 06/20/19 13:45 Albumin 3.6 g/dl (3.4-5.0) 06/20/19 13:45 mild hyperglycemia , CARDIAC profile negative UA positive for UTI will give one dose on nitrofurantoin 06/20/19 15:22 Based on lab findings and PE, pt most likely suffers from peripheral vertigo due to otitis externa s/p wax removal , UTI as potential source of lightheadedness in absence of focal neurological deficits, and negative cardiac profile will discharge on nitrofurantoin 50 mg 4 times a day by mouth for 5 days as well as ofloxacin 10 drops a day in the left ear for 7 days. discharge precautions discussed on DC summary to pt Past History - Past Medical History Allergies/Adverse Reactions: Allergies Allergy/AdvReac Type Severity Reaction Status Date / Time aspirin Allergy Verified 06/20/19 12:23 Penicillins Allergy Verified 06/20/19 12:23 Home Medications: Ambulatory Orders Cholecalciferol (Vitamin D3) [Vitamin D3] 1,000 unit PO BID 10/13/14 Cyanocobalamin [Vitamin B12 -] 500 mcg PO DAILY 10/13/14 Glyburide/Metformin HCl [Glucovance 5-500 mg Tablet] 1 each PO BID 10/13/14 Losartan Potassium 100 mg PO DAILY 10/13/14 Sitagliptin Phosphate [Januvia] 100 mg PO DAILY 10/13/14 Aspirin [ASA -] 325 mg PO DAILY tablet 10/17/14 Docusate Sodium [Colace -] 100 mg PO DAILY cap 01/24/17 Enoxaparin [Lovenox -] 40 mg SQ DAILY syr 01/24/17 Ferrous Sulfate [Feosol] 325 mg PO DAILY tab 01/24/17 Insulin Sliding Scale [Novolog Vial Sliding Scale -] 1 vial SQ ACHS units 01/24 Metoprolol Tartrate [Lopressor -] 25 mg PO DAILY #0 tab 01/24/17 Pantoprazole Sodium [Protonix -] 40 mg PO DAILY tab 01/24/17 Simvastatin [Zocor -] 20 mg PO HS #0 tab 01/24/17 oxyCODONE HCL [Roxicodone -] 5 mg PO Q4H PRN #0 tablet MDD 4 01/24/17 Nitrofurantoin Macrocrystal [Nitrofurantoin] 50 mg PO Q6H 5 Days #20 capsule 05/10 Ofloxacin 0.3% Ophth Soln [Ocuflox -] 10 drop DAILY 7 Days drops 06/20/19 Ofloxacin Otic [Floxin Otic -] 10 drop OT DAILY #1 bottle 06/20/19 Cancer: Yes (gastric) COPD: No Diabetes: Yes HTN: Yes - Psycho Social/Smoking Cessation Hx Smoking History: Never smoked Have you smoked in the past 12 months: No If you are a former smoker, when did you quit?: 30YRS AGO Information on smoking cessation initiated: No Hx Alcohol Use: No Drug/Substance Use Hx: No Substance Use Type: None *Physical Exam - Vital Signs Last Vital Signs Temp Pulse Resp BP Pulse Ox 98 F 62 18 137/59 L 99 06/20/19 12:21 06/20/19 12:21 06/20/19 12:21 06/20/19 12:21 06/20/19 12:21 ED Treatment Course - LABORATORY CBC & Chemistry Diagram: 06/20/19 13:45 06/20/19 13:45 Medical Decision Making - Medical Decision Making 06/23/19 19:14 Based on lab findings and PE, pt most likely suffers from peripheral vertigo due to otitis externa s/p wax removal , UTI as potential source of lightheadedness in absence of focal neurological deficits, and negative cardiac profile will discharge on nitrofurantoin 50 mg 4 times a day by mouth for 5 days as well as ofloxacin 10 drops a day in the left ear for 7 days. discharge precautions discussed on DC summary to pt Discharge - Discharge Information Problems reviewed: Yes Clinical Impression/Diagnosis: UTI (urinary tract infection) Qualifiers: Urinary tract infection type: site unspecified Hematuria presence: without hematuria Qualified Code(s): N39.0 - Urinary tract infection, site not specified Otitis externa Qualifiers: Otitis externa type: unspecified type Chronicity: unspecified Laterality: unspecified laterality Qualified Code(s): H60.90 - Unspecified otitis externa, unspecified ear Condition: Improved Disposition: HOME - Admission No - Additional Discharge Information Prescriptions: Nitrofurantoin Macrocrystal [Nitrofurantoin] 50 mg PO Q6H 5 Days #20 capsule Ofloxacin 0.3% Ophth Soln [Ocuflox -] 10 drop DAILY 7 Days drops Ofloxacin Otic [Floxin Otic -] 10 drop OT DAILY #1 bottle - Follow up/Referral Referrals: Cal Antoine MD [Primary Care Provider] - Call tomorrow Theodore Stevens MD [Staff Physician] - Call tomorrow Ian Coles MD [Staff Physician] - Call tomorrow - Patient Discharge Instructions Patient Printed Discharge Instructions: DI for Urinary Tract Infection (UTI), DI for Otitis Externa Additional Instructions: You came into the ED because of lightheadedness. We examined you, tested your blood and found an evidence of inflammation in your left ear, an infection in your urine. Please take the antibiotics below for the next 5 days and the ear drops for the next 7 days. You are stable for discharge. Please take the following for the next few days: PLease take nitrofurantoin 50mg 4 times a day by mouth for 5 days please put 10 drops of ofloxacin in your left ear once a day for 7 days If you begin to experience, fever chills, nausea, vomiting, chest pain, shortness of breath, decreased hearing, worsening dizziness or bleeding return to the emergency room immediately - Post Discharge Activity
[2019-06-20] MEDS ORDERED: METOCLOPRAMIDE HCL INJECTION 10 MG/2 ML VIAL IVPUSH ONE (13:50)
[2019-06-20 14:03] LABS: BASO % 0.8 % (0-2.0); HEMATOCRIT 36.6 % (32.4-45.2); LYMPH % 15.1 % (8-40); MCH 27.8 pg (25.7-33.7); MCHC 32.8 g/dl (32.0-36.0); MEAN CELL VOLUME 84.8 fl (80-96); MEAN PLT VOLUME 11.3 fl (7.5-11.1); NEUT % 77.1 % (42.8-82.8); PLATELET COUNT 187 K/MM3 (134-434); RBC 4.31 M/mm3 (3.60-5.2); RDW 15.3 % (11.6-15.6); WHITE BLOOD COUNT 6.6 K/mm3 (4.0-10.0)
[2019-06-20 14:13] LABS: EPI CELLS 0.7 /HPF (0-5/HPF); HYALINE CASTS 1 /lpf (0-8); URINE APPEARANCE CLEAR; URINE BACTERIA 14.3 /hpf (NEGATIVE); URINE BILIRUBIN NEGATIVE (NEGATIVE); URINE COLOR YELLOW; URINE GLUCOSE (UA) NEGATIVE (NEGATIVE); URINE KETONE NEGATIVE (NEGATIVE); URINE LEUK ESTERASE 2+ (NEGATIVE); URINE NITRITE NEGATIVE (NEGATIVE); URINE PROTEIN NEGATIVE (NEGATIVE); URINE RBC 2 /hpf (0-4); URINE UROBILINOGEN 0.2 mg/dL (0.2-1.0); URINE WBC 7 /hpf (0-5)
[2019-06-20] MEDS ORDERED: METOCLOPRAMIDE HCL INJECTION 10 MG/2 ML VIAL ONE (14:18)
[2019-06-20 14:38] LABS: ALBUMIN 3.6 g/dl (3.4-5.0); ALK PHOS 110 U/L (45-117); ANION GAP 7 MMOL/L (8-16); BILIRUBIN,TOTAL 0.4 mg/dL (0.2-1); BLOOD UREA NITROGEN 16.4 mg/dL (7-18); CALCIUM 8.7 mg/dL (8.5-10.1); CHLORIDE 108 mmol/L (98-107); CO2 25 mmol/L (21-32); CREATININE 0.8 mg/dL (0.55-1.3); GLUCOSE,RANDOM 166 mg/dL (74-106); POTASSIUM 4.7 mmol/L (3.5-5.1); SGOT/AST 19 U/L (15-37); SGPT/ALT 20 U/L (13-61); SODIUM 141 mmol/L (136-145); TOT PROT 7.1 g/dl (6.4-8.2)
[2019-06-20] MEDS ORDERED: NITROFURANTOIN MACROCRYSTAL 50 MG CAPSULE (FP) PO SCH (15:30)
[2019-06-20] MEDS ORDERED: NITROFURANTOIN MACROCRYSTAL 50 MG CAPSULE (FP) ONE (15:33)
[2019-06-20 15:58] VITALS: BP 149/62; TEMP 98.4
--- NOTE | 2019-06-21 09:27 | EKG ---
Test Reason : Blood Pressure : / mmHG Vent. Rate : 055 BPM Atrial Rate : 055 BPM P-R Int : 142 ms QRS Dur : 076 ms QT Int : 412 ms P-R-T Axes : 019 -42 005 degrees QTc Int : 394 ms SINUS BRADYCARDIA LEFT AXIS DEVIATION Nonspecific T changes LOW VOLTAGE QRS ABNORMAL ECG WHEN COMPARED WITH ECG OF 22-JAN-2017 08:55, No significant changes Confirmed by Laine Anguiano ([id number]) on 06/21/2019 9:27:02 AM Referred By: Confirmed By:Laine Anguiano
== END 2019-06-20 16:01 | disposition home or self-care (01) ==
LOC: JER 12:10
PROC: 3E0337Z Introduction of Electrolytic and Water Balance Substance into Peripheral Vein, Percutaneous Approach (ICD-10-PCS; principal; 2019-06-20)
PROC: 3E033GC Introduction of Other Therapeutic Substance into Peripheral Vein, Percutaneous Approach (ICD-10-PCS; 2019-06-20)
DX: N39.0 Urinary tract infection, site not specified (principal); H60.502 Unspecified acute noninfective otitis externa, left ear; H61.22 Impacted cerumen, left ear; H81.392 Other peripheral vertigo, left ear; Z88.0 Allergy status to penicillin; Z88.6 Allergy status to analgesic agent; I10 Essential (primary) hypertension; E78.5 Hyperlipidemia, unspecified; E11.9 Type 2 diabetes mellitus without complications; Z79.84 Long term (current) use of oral hypoglycemic drugs; Z85.028 Personal history of other malignant neoplasm of stomach
CPT/HCPCS: 36415; 80053; 81003; 82550; 84484; 85025; 87086; 93005; 93010; 96361; 96374; 99284-25; J7030

== ENCOUNTER 2022-02-15 19:06 | Inpatient (IN) | payer OTHER ==
[2022-02-15] MEDS ORDERED: ACETAMINOPHEN 500 MG TABLET (FP) PO ONE (20:24)
[2022-02-15] MEDS ORDERED: ACETAMINOPHEN 325 MG TABLET (FP) ONE (20:51)
[2022-02-15 23:15] LABS: BASO % 0.2 % (0-2.0); EOS % 0.1 % (0-4.5); HEMOGLOBIN 11.4 GM/dL (10.7-15.3); LYMPH % 6.2 % (8-40); MCHC 33.4 g/dl (32.0-36.0); MEAN CELL VOLUME 83.7 fl (80-96); MONO % 4.4 % (3.8-10.2); NEUT % 89.1 % (42.8-82.8); PLATELET COUNT 214 10^3/uL (134-434); RBC 4.06 M/mm3 (3.60-5.2); RDW 14.3 % (11.6-15.6); WHITE BLOOD COUNT 12.8 K/mm3 (4.0-10.0)
[2022-02-15 23:22] LABS: INR 1.08 (0.83-1.09); PROTHROMBIN TIME (PATIENT) 12.4 SEC (9.7-13.0)
[2022-02-15 23:25] LABS: ACTIVATED PTT 29.4 SECONDS (25.2-36.5)
[2022-02-15 23:40] LABS: CALCIUM 9.5 mg/dL (8.5-10.1)
[2022-02-15 23:42] LABS: ALBUMIN 3.6 g/dl (3.4-5.0); BLOOD UREA NITROGEN 19.6 mg/dL (7-18)
[2022-02-15 23:44] LABS: CREATININE 0.8 mg/dL (0.55-1.3)
[2022-02-15 23:46] LABS: BILIRUBIN,TOTAL 0.2 mg/dL (0.2-1)
[2022-02-16] MEDS ORDERED: ACETAMINOPHEN INJECTION 100 ML IVPB ONE ×2 (05:04→12:10)
[2022-02-16 06:30] LABS: BASO % 0.6 % (0-2.0); EOS % 0.5 % (0-4.5); HEMATOCRIT 30.8 % (32.4-45.2); HEMOGLOBIN 10.4 GM/dL (10.7-15.3); LYMPH % 8.5 % (8-40); MCH 28.5 pg (25.7-33.7); MCHC 33.8 g/dl (32.0-36.0); MEAN CELL VOLUME 84.2 fl (80-96); MEAN PLT VOLUME 10.1 fl (7.5-11.1); MONO % 6.8 % (3.8-10.2); NEUT % 83.6 % (42.8-82.8); PLATELET COUNT 185 10^3/uL (134-434); RBC 3.66 M/mm3 (3.60-5.2); RDW 14.2 % (11.6-15.6); WHITE BLOOD COUNT 7.2 K/mm3 (4.0-10.0)
[2022-02-16 06:48] LABS: MAGNESIUM 1.5 mg/dL (1.8-2.4)
[2022-02-16 06:51] LABS: CREATININE 0.8 mg/dL (0.55-1.3); PHOSPHOROUS 3.3 mg/dL (2.5-4.9)
[2022-02-16] MEDS ORDERED: LOSARTAN POTASSIUM 50 MG TABLET ONE ×2 (10:45→10:46)
[2022-02-16] MEDS ORDERED: metoPROLOL SUCCINATE 25 MG TAB.SR.24H (FP) PO ONE (10:46)
[2022-02-16] MEDS: metoPROLOL SUCCINATE 25 MG TAB.SR.24H (FP) PO SCH (10:56)
[2022-02-16] MEDS: LOSARTAN POTASSIUM 50 MG TABLET PO SCH (10:56)
[2022-02-16] MEDS ORDERED: INSULIN (NOVOLOG) ASPART 100 UNITS/ML 10ML VIAL ONE (11:18)
[2022-02-16] MEDS: INSULIN SLIDING SCALE (NOVOLOG) 1 VIAL SQ SCH ×4 (11:20→22:21)
[2022-02-16] MEDS: ACETAMINOPHEN 1000 MG/100 ML BAG IVPB PRN (12:14)
[2022-02-16] MEDS ORDERED: MAGNESIUM 2GM/50ML STERILE WATER IVPB IVPB ONE (17:56)
[2022-02-16] MEDS ORDERED: MAGNESIUM SULFATE IN WATER 2 GM/50 ML IVPB IVPB ONE (18:30)
[2022-02-16] MEDS ORDERED: ATORVASTATIN CA 10 MG TABLET (FP) ONE (21:02)
[2022-02-16] MEDS: ATORVASTATIN CA 10 MG TABLET (FP) PO SCH (22:21)
[2022-02-17] MEDS: ACETAMINOPHEN 1000 MG/100 ML BAG IVPB PRN (02:05)
[2022-02-17 03:48] VITALS: BMI 21.1
[2022-02-17] MEDS: INSULIN SLIDING SCALE (NOVOLOG) 1 VIAL SQ SCH ×4 (06:25→22:10)
[2022-02-17] MEDS: LOSARTAN POTASSIUM 50 MG TABLET PO SCH (09:05)
[2022-02-17] MEDS: metoPROLOL SUCCINATE 25 MG TAB.SR.24H (FP) PO SCH (09:05)
[2022-02-17 09:28] LABS: BASO % 0.5 % (0-2.0); EOS % 2.7 % (0-4.5); HEMATOCRIT 35.6 % (32.4-45.2); HEMOGLOBIN 11.4 GM/dL (10.7-15.3); LYMPH % 18.8 % (8-40); MCHC 32.1 g/dl (32.0-36.0); MEAN CELL VOLUME 84.1 fl (80-96); MEAN PLT VOLUME 9.9 fl (7.5-11.1); PLATELET COUNT 211 10^3/uL (134-434); RBC 4.23 M/mm3 (3.60-5.2); WHITE BLOOD COUNT 5.6 K/mm3 (4.0-10.0)
[2022-02-17 09:57] LABS: ALBUMIN 3.2 g/dl (3.4-5.0); BLOOD UREA NITROGEN 12.8 mg/dL (7-18)
[2022-02-17 09:58] LABS: CALCIUM 9.2 mg/dL (8.5-10.1); MAGNESIUM 1.9 mg/dL (1.8-2.4)
[2022-02-17 10:01] LABS: CREATININE 0.7 mg/dL (0.55-1.3); PHOSPHOROUS 3.4 mg/dL (2.5-4.9)
[2022-02-17 10:03] LABS: TOT PROT 6.6 g/dl (6.4-8.2)
[2022-02-17 10:05] LABS: BILIRUBIN,TOTAL 0.6 mg/dL (0.2-1)
[2022-02-17] MEDS: ENOXAPARIN NA (PORCINE) 40 MG/0.4 ML DISP.SYRIN SQ SCH (10:25)
[2022-02-17] MEDS: FERROUS SO4 325 MG TABLET (FP) PO SCH (13:28)
[2022-02-17] MEDS: oxyCODONE HCL 5 MG TABLET PO PRN (14:55)
[2022-02-17] MEDS: ATORVASTATIN CA 10 MG TABLET (FP) PO SCH (22:10)
[2022-02-18] MEDS: INSULIN SLIDING SCALE (NOVOLOG) 1 VIAL SQ SCH ×4 (06:06→22:38)
[2022-02-18] MEDS ORDERED: REMDESIVIR 200 MG in SODIUM CHLORIDE 250 ML IVPB ONE ×2 (10:05→11:00)
[2022-02-18] MEDS ORDERED: DEXAMETHASONE SOD PHOSPHATE 10 MG/1 ML VIAL IVPUSH SCH (10:15)
[2022-02-18] MEDS: LOSARTAN POTASSIUM 50 MG TABLET PO SCH (10:55)
[2022-02-18] MEDS: DOCUSATE SODIUM 100 MG CAPSULE (FP) PO PRN (10:55)
[2022-02-18] MEDS: oxyCODONE HCL 5 MG TABLET PO PRN (10:56)
[2022-02-18] MEDS: FERROUS SO4 325 MG TABLET (FP) PO SCH (10:56)
[2022-02-18] MEDS: metoPROLOL SUCCINATE 25 MG TAB.SR.24H (FP) PO SCH (10:56)
[2022-02-18] MEDS: ENOXAPARIN NA (PORCINE) 40 MG/0.4 ML DISP.SYRIN SQ SCH (12:27)
[2022-02-18] MEDS ORDERED: INSULIN (NOVOLOG) ASPART 100 UNITS/ML 10ML VIAL ONE (21:18)
[2022-02-18] MEDS: ATORVASTATIN CA 10 MG TABLET (FP) PO SCH (22:37)
[2022-02-19] MEDS: INSULIN SLIDING SCALE (NOVOLOG) 1 VIAL SQ SCH ×4 (07:01→22:12)
[2022-02-19 10:18] LABS: BASO % 0.2 % (0-2.0); EOS % 0.5 % (0-4.5); HEMATOCRIT 32.7 % (32.4-45.2); HEMOGLOBIN 10.7 GM/dL (10.7-15.3); LYMPH % 15.7 % (8-40); MCH 27.6 pg (25.7-33.7); MCHC 32.8 g/dl (32.0-36.0); MEAN CELL VOLUME 84.2 fl (80-96); MEAN PLT VOLUME 11.3 fl (7.5-11.1); MONO % 9.6 % (3.8-10.2); PLATELET COUNT 249 10^3/uL (134-434); RBC 3.88 M/mm3 (3.60-5.2); RDW 14.7 % (11.6-15.6); WHITE BLOOD COUNT 9.2 K/mm3 (4.0-10.0)
[2022-02-19] MEDS: DEXAMETHASONE 4 MG TABLET (FP) PO SCH (10:51)
[2022-02-19] MEDS: metoPROLOL SUCCINATE 25 MG TAB.SR.24H (FP) PO SCH (10:51)
[2022-02-19] MEDS: FERROUS SO4 325 MG TABLET (FP) PO SCH (10:51)
[2022-02-19] MEDS: LOSARTAN POTASSIUM 50 MG TABLET PO SCH (10:52)
[2022-02-19] MEDS: DOCUSATE SODIUM 100 MG CAPSULE (FP) PO PRN (10:52)
[2022-02-19] MEDS: oxyCODONE HCL 5 MG TABLET PO PRN (10:52)
[2022-02-19] MEDS: ENOXAPARIN NA (PORCINE) 40 MG/0.4 ML DISP.SYRIN SQ SCH (10:52)
[2022-02-19] MEDS ORDERED: REMDESIVIR 100 MG in SODIUM CHLORIDE 250 ML IVPB SCH (11:00)
[2022-02-19 11:20] LABS: BLOOD UREA NITROGEN 25.5 mg/dL (7-18); CALCIUM 9.6 mg/dL (8.5-10.1)
[2022-02-19 11:21] LABS: ALBUMIN 3.1 g/dl (3.4-5.0); MAGNESIUM 1.9 mg/dL (1.8-2.4)
[2022-02-19 11:24] LABS: BILIRUBIN,TOTAL 0.5 mg/dL (0.2-1); CREATININE 0.8 mg/dL (0.55-1.3)
[2022-02-19 11:25] LABS: TOT PROT 6.5 g/dl (6.4-8.2)
[2022-02-19] MEDS: ATORVASTATIN CA 10 MG TABLET (FP) PO SCH (22:12)
[2022-02-20] MEDS: INSULIN SLIDING SCALE (NOVOLOG) 1 VIAL SQ SCH ×3 (06:21→17:33)
[2022-02-20 07:59] VITALS: RESP 20
[2022-02-20 10:00] LABS: BASO % 0.4 % (0-2.0); EOS % 0.5 % (0-4.5); HEMATOCRIT 32.5 % (32.4-45.2); HEMOGLOBIN 10.8 GM/dL (10.7-15.3); LYMPH % 18.8 % (8-40); MCH 28.2 pg (25.7-33.7); MCHC 33.2 g/dl (32.0-36.0); MEAN CELL VOLUME 85.1 fl (80-96); MEAN PLT VOLUME 10.5 fl (7.5-11.1); MONO % 8.3 % (3.8-10.2); PLATELET COUNT 241 10^3/uL (134-434); RBC 3.83 M/mm3 (3.60-5.2); RDW 14.9 % (11.6-15.6)
[2022-02-20 10:11] LABS: CALCIUM 9.2 mg/dL (8.5-10.1)
[2022-02-20 10:12] LABS: ALBUMIN 3.1 g/dl (3.4-5.0); BLOOD UREA NITROGEN 26.1 mg/dL (7-18); MAGNESIUM 1.9 mg/dL (1.8-2.4)
[2022-02-20 10:15] LABS: CREATININE 0.7 mg/dL (0.55-1.3)
[2022-02-20] MEDS: metoPROLOL SUCCINATE 25 MG TAB.SR.24H (FP) PO SCH (10:16)
[2022-02-20] MEDS: DEXAMETHASONE 4 MG TABLET (FP) PO SCH (10:16)
[2022-02-20 10:17] LABS: BILIRUBIN,TOTAL 0.6 mg/dL (0.2-1); TOT PROT 6.6 g/dl (6.4-8.2)
[2022-02-20] MEDS: LOSARTAN POTASSIUM 50 MG TABLET PO SCH (10:17)
[2022-02-20] MEDS: ENOXAPARIN NA (PORCINE) 40 MG/0.4 ML DISP.SYRIN SQ SCH (10:17)
[2022-02-20] MEDS: FERROUS SO4 325 MG TABLET (FP) PO SCH (10:17)
[2022-02-20 14:47] VITALS: BP 111/60; PULSE 75; TEMP 98.5
== END 2022-02-20 18:22 | disposition home health service (06) | DRG 178 ==
LOC: JER 19:06 → JERBED 23:09 → J8W 02-17 01:17
PROVIDERS: ADMIT Internal Medicine; ATTEND Nurse Practitioner Acute Care
PROC: XW033E5 Introduction of Remdesivir Anti-infective into Peripheral Vein, Percutaneous Approach, New Technology Group 5 (ICD-10-PCS; principal; 2022-02-18)
DX: U07.1 COVID-19 (principal); I10 Essential (primary) hypertension; E78.5 Hyperlipidemia, unspecified; E11.9 Type 2 diabetes mellitus without complications; S32.512A Fracture of superior rim of left pubis, initial encounter for closed fracture; R09.02 Hypoxemia; W01.0XXA Fall on same level from slipping, tripping and stumbling without subsequent striking against object, initial encounter; Y92.480 Sidewalk as the place of occurrence of the external cause; Z96.651 Presence of right artificial knee joint; Z85.09 Personal history of malignant neoplasm of other digestive organs
CPT/HCPCS: 0241U-QW; 36415; 71045-TC-FY; 72170-TC-FY; 73070-TC-LT-FY; 73502-TC-LT-FY; 80048; 80053; 82962; 83735; 84100; 85025; 85610; 85730; 86140; 86850; 86900; 86901; 93005; 93010; 94761; 97116-GP; 99285-25; C9399; J1100